=== PATIENT | female | born 1985 | race African-American/Black ===

== ENCOUNTER 2021-12-28 04:10 | Inpatient (IN) | payer OTHER ==
[2021-12-28] MEDS ORDERED: ELECTROLYTE-148 SOLN 500 ML IV ONE (05:05)
[2021-12-28] MEDS: ELECTROLYTE-148 SOLN 1,000 ML IV SCH ×3 (05:45→12:00)
[2021-12-28 07:09] VITALS: BMI 33.6
[2021-12-28] MEDS ORDERED: OXYTOCIN 30 UNITS in 0.9% NS 30 UNIT/500 ML INFUS.BAG IVPB SCH (08:00)
[2021-12-28 08:03] LABS: BASO % 0.5 % (0-2.0); HEMATOCRIT 34.1 % (32.4-45.2); HEMOGLOBIN 12.1 GM/dL (10.7-15.3); LYMPH % 12.2 % (8-40); MCH 32.4 pg (25.7-33.7); MCHC 35.6 g/dl (32.0-36.0); MEAN CELL VOLUME 91.1 fl (80-96); MEAN PLT VOLUME 9.7 fl (7.5-11.1); MONO % 7.5 % (3.8-10.2); NEUT % 79.8 % (42.8-82.8); PLATELET COUNT 231 10^3/uL (134-434); RBC 3.74 M/mm3 (3.60-5.2); RDW 13.4 % (11.6-15.6); WHITE BLOOD COUNT 11.8 K/mm3 (4.0-10.0)
[2021-12-28 08:20] LABS: INR 0.98 (0.83-1.09); PROTHROMBIN TIME (PATIENT) 11.3 SEC (9.7-13.0)
[2021-12-28] MEDS ORDERED: FENTANYL/BUPIVACAINE/NS/PF - PCEA - 50 ML DISP.SYRIN EP ONE ×2 (08:20→12:18)
[2021-12-28 08:23] LABS: ACTIVATED PTT 30.5 SECONDS (25.2-36.5)
[2021-12-28 08:28] LABS: CALCIUM 8.8 mg/dL (8.5-10.1)
[2021-12-28 08:29] LABS: BLOOD UREA NITROGEN 7.6 mg/dL (7-18)
[2021-12-28 08:32] LABS: CREATININE 0.5 mg/dL (0.55-1.3)
[2021-12-28] MEDS ORDERED: BUPIVACAINE HCL/PF 0.25% (2.5MG/ML) 10 ML VIAL ONE (08:33)
[2021-12-28] MEDS: FENTANYL/BUPIVACAINE/NS/PF - PCEA - 50 ML DISP.SYRIN EP SCH ×2 (08:55→12:20)
[2021-12-28] MEDS ORDERED: NALOXONE HCL 0.4 MG/ML VIAL IVPUSH PRN (09:00)
[2021-12-28] MEDS ORDERED: OXYTOCIN 30 UNITS in 0.9% NS 30 UNIT/500 ML INFUS.BAG IVPB ONE (09:34)
[2021-12-28] MEDS ORDERED: OXYTOCIN 20 UNITS in 0.9% NS 20 UNIT/1,000 ML INFUS.BAG IV ONE (11:58)
[2021-12-28] MEDS ORDERED: LIDOCAINE HCL 1% PRESERVATIVE FREE - 30ML VIAL ONE (12:00)
[2021-12-28] MEDS ORDERED: BENZOCAINE 20% 57 GM BOTTLE TP PRN (15:19)
[2021-12-28] MEDS ORDERED: BISACODYL 10 MG SUPP.RECT RC PRN (15:19)
[2021-12-28] MEDS ORDERED: oxyCODONE HCL 5 MG TABLET PO PRN (15:19)
[2021-12-28] MEDS ORDERED: METHYLERGONOVINE MALEATE 0.2 MG/1 ML AMP IM PRN (15:19)
[2021-12-28] MEDS ORDERED: BENZOCAINE 28 GM HEMORRHOIDAL OINTMENT TP PRN (15:19)
[2021-12-28] MEDS ORDERED: WITCH HAZEL 50% (TUCKS) 40 PAD/JAR PAD TP PRN (15:19)
[2021-12-28] MEDS ORDERED: OXYTOCIN 20 UNITS in 0.9% NS 20 UNIT/1,000 ML INFUS.BAG IV SCH (15:30)
[2021-12-28] MEDS ORDERED: ACETAMINOPHEN 325 MG TABLET (FP) ONE (16:52)
[2021-12-28] MEDS: ACETAMINOPHEN 325 MG TABLET (FP) PO PRN (16:55)
[2021-12-28] MEDS: IBUPROFEN 600 MG TABLET (FP) PO PRN (22:39)
[2021-12-28] MEDS: SENNOSIDES/DOCUSATE COMBO (SENNA PLUS) TABLET (UD) PO PRN (22:39)
[2021-12-29 08:16] LABS: HEMATOCRIT 26.6 % (32.4-45.2); HEMOGLOBIN 9.4 GM/dL (10.7-15.3); MCH 32.5 pg (25.7-33.7); MCHC 35.3 g/dl (32.0-36.0); MEAN PLT VOLUME 9.6 fl (7.5-11.1); PLATELET COUNT 189 10^3/uL (134-434); RBC 2.89 M/mm3 (3.60-5.2); RDW 13.4 % (11.6-15.6); WHITE BLOOD COUNT 20.1 K/mm3 (4.0-10.0)
[2021-12-29 09:34] LABS: ANISOCYTOSIS 0; MACROCYTOSIS 1+
[2021-12-29] MEDS: ACETAMINOPHEN 325 MG TABLET (FP) PO PRN (15:47)
[2021-12-29] MEDS: ELECTROLYTE-148 SOLN 1,000 ML IV SCH (20:31)
[2021-12-29] MEDS: FENTANYL/BUPIVACAINE/NS/PF - PCEA - 50 ML DISP.SYRIN EP SCH (20:31)
[2021-12-29] MEDS: SENNOSIDES/DOCUSATE COMBO (SENNA PLUS) TABLET (UD) PO PRN (21:29)
[2021-12-29] MEDS: IBUPROFEN 600 MG TABLET (FP) PO PRN (21:30)
[2021-12-30] MEDS: IBUPROFEN 600 MG TABLET (FP) PO PRN (08:32)
[2021-12-30 10:50] VITALS: BP 104/70; PULSE 87; RESP 16; TEMP 98.3
[2021-12-30 10:56] LABS: POC NITRAZINE NEG
== END 2021-12-30 11:25 | disposition home or self-care (01) | DRG 807 ==
LOC: JDEL 04:10 → JLDR 06:25 → J3W 17:40
PROVIDERS: ADMIT Specialist; ATTEND Specialist
PROC: 10D07Z6 Extraction of Products of Conception, Vacuum, Via Natural or Artificial Opening (ICD-10-PCS; principal; 2021-12-28)
PROC: 0W8NXZZ Division of Female Perineum, External Approach (ICD-10-PCS; 2021-12-28)
DX: O36.5930 Maternal care for other known or suspected poor fetal growth, third trimester, not applicable or unspecified (principal); Z37.0 Single live birth; Z3A.39 39 weeks gestation of pregnancy
CPT/HCPCS: 36415; 59409; 80048; 83986-QW; 85025; 85610; 85730; 86780; 86850; 86900; 86901; C9803-CS; U0003; U0005

== ENCOUNTER 2024-10-02 15:25 | Inpatient (IN) | payer OTHER, BC ==
[2024-10-02] MEDS: ELECTROLYTE-148 SOLN 1,000 ML IV SCH (19:30)
[2024-10-02 19:40] VITALS: BMI 35.0
[2024-10-02 20:01] LABS: ABSOLUTE IMMATURE GRANULOCYTES 0.05 x10^3/uL (0.0-0.031); BASOPHILS # 0.04 x10^3/uL (0.01-0.08); EOSINOPHIL % 0.3 % (0.7-5.8); EOSINOPHILS # 0.03 x10^3/uL (0.04-0.36); HEMATOCRIT 34.2 % (34.1-44.9); HEMOGLOBIN 12.2 g/dL (11.2-15.7); MCHC 35.7 g/dl (32.2-35.5); MEAN CELL VOLUME 89.8 fl (79.4-94.8); MEAN PLT VOLUME 11.2 fl (9.4-12.3); MONOCYTE # 0.95 x10^3/uL (0.24-0.86); PLATELET COUNT 277 x10^3/uL (182-369); RDW 12.6 % (12.1-16.8)
[2024-10-02 20:17] LABS: INR 1.03 (0.83-1.09); PROTHROMBIN TIME (PATIENT) 11.2 SEC (9.7-13.0)
[2024-10-02 20:20] LABS: ACTIVATED PTT 28.4 SECONDS (25.2-36.5)
[2024-10-02 20:32] LABS: POTASSIUM 4.1 mmol/L (3.5-5.1)
[2024-10-02 20:34] LABS: BLOOD UREA NITROGEN 10.9 mg/dL (7-18); CALCIUM 9.9 mg/dL (8.5-10.1)
[2024-10-02 20:38] LABS: CREATININE 0.6 mg/dL (0.55-1.3)
[2024-10-03] MEDS ORDERED: OXYTOCIN 30 UNITS in 0.9% NS 30 UNIT/500 ML INFUS.BAG IVPB ONE (06:32)
[2024-10-03] MEDS: OXYTOCIN 30 UNITS in 0.9% NS 30 UNIT/500 ML INFUS.BAG IVPB SCH (06:35)
[2024-10-03] MEDS ORDERED: FENTANYL/BUPIVACAINE/NS/PF - PCEA - 50 ML DISP.SYRIN EP ONE (11:53)
[2024-10-03] MEDS ORDERED: BUPIVACAINE HCL/PF 0.25% (2.5MG/ML) 10 ML VIAL ONE ×2 (12:01→14:28)
[2024-10-03] MEDS ORDERED: NALOXONE HCL 0.4 MG/ML VIAL IVPUSH PRN (12:29)
[2024-10-03] MEDS: FENTANYL/BUPIVACAINE/NS/PF - PCEA - 50 ML DISP.SYRIN EP SCH (13:47)
[2024-10-03] MEDS ORDERED: OXYTOCIN 20 UNITS in 0.9% NS 20 UNIT/1,000 ML INFUS.BAG IV ONE (16:29)
[2024-10-03] MEDS: OXYTOCIN 20 UNITS in 0.9% NS 20 UNIT/1,000 ML INFUS.BAG IV SCH (18:20)
[2024-10-03] MEDS ORDERED: BISACODYL 10 MG SUPP.RECT RC PRN (18:41)
[2024-10-03] MEDS ORDERED: BENZOCAINE 28 GM HEMORRHOIDAL OINTMENT TP PRN (18:41)
[2024-10-03] MEDS ORDERED: WITCH HAZEL 50% (TUCKS) 40 PAD/JAR PAD TP PRN (18:41)
[2024-10-03] MEDS ORDERED: BENZOCAINE 20% 57 GM BOTTLE TP PRN (18:41)
[2024-10-03] MEDS ORDERED: ACETAMINOPHEN 325 MG TABLET (FP) ONE (19:03)
[2024-10-03] MEDS: ACETAMINOPHEN 325 MG TABLET (FP) PO PRN (19:05)
[2024-10-03] MEDS: METHYLERGONOVINE MALEATE 0.2 MG/1 ML AMP IM PRN (19:41)
[2024-10-03] MEDS: oxyCODONE HCL 5 MG TABLET PO PRN (22:31)
[2024-10-03 23:41] VITALS: RESP 18
[2024-10-04] MEDS: IBUPROFEN 600 MG TABLET (FP) PO PRN (05:52)
[2024-10-04 08:06] LABS: BASOPHILS # 0.04 x10^3/uL (0.01-0.08); EOSINOPHIL % 0.2 % (0.7-5.8); EOSINOPHILS # 0.03 x10^3/uL (0.04-0.36); HEMATOCRIT 31.6 % (34.1-44.9); MCHC 34.8 g/dl (32.2-35.5); MEAN CELL VOLUME 90.5 fl (79.4-94.8); MEAN PLT VOLUME 11.5 fl (9.4-12.3); MONOCYTE % 9.6 % (4.7-12.5); PLATELET COUNT 250 x10^3/uL (182-369); RDW 12.6 % (12.1-16.8)
[2024-10-04] MEDS: SENNOSIDES/DOCUSATE COMBO (SENNA PLUS) TABLET (UD) PO PRN (20:29)
[2024-10-05 10:08] VITALS: BP 109/65; PULSE 88; TEMP 98.2
== END 2024-10-05 13:20 | disposition home or self-care (01) | DRG 806 ==
LOC: JDEL 15:25 → JLDR 19:18 → J3W 10-03 21:33
PROVIDERS: ADMIT Specialist; ATTEND Specialist
PROC: 10D07Z6 Extraction of Products of Conception, Vacuum, Via Natural or Artificial Opening (ICD-10-PCS; principal; 2024-10-03)
PROC: 0W8NXZZ Division of Female Perineum, External Approach (ICD-10-PCS; 2024-10-03)
DX: O48.0 Post-term pregnancy (principal); O72.1 Other immediate postpartum hemorrhage; Z37.0 Single live birth; Z3A.40 40 weeks gestation of pregnancy; O66.0 Obstructed labor due to shoulder dystocia; O66.5 Attempted application of vacuum extractor and forceps
CPT/HCPCS: 36415; 59409; 80048; 85025; 85610; 85730; 86780; 86850; 86900; 86901